=== PATIENT | female | born 1945 | race Caucasian/White ===

== ENCOUNTER → 2016-10-25 | Outpatient (CLI) | payer OTHER ==
[~2016-10-25] MED LIST: ACET500T57 PO; ASCO1CAP3 PO; ASPI81TA28 PO; ATOR10TA88 PO; CALC-354 PO; CETI10TA84 PO; DICL75TA2 PO; ETAN50IN3 SC; FERR18TA2 PO; FLUT0.15 NAE; FLV400 PO; FLVHFA44 INH; GUAISYP4 PO; IRBE-37 PO; METF500T5 PO; MULTCHW PO; ONGLYZA PO; OXYC-57 PO; PRLSR20 PO; SRVDIN60 INH; TRMO115 TOP; VERA180T PO; VERA1TAB PO; VITACAP26 PO; ZNTT/150 PO; [UNRECOGNIZED DRUG - CODE] PO
[2016-10-25 12:49] LABS: URINE APPEARANCE CLEAR (CLEAR); URINE BILIRUBIN NEG (NEG); URINE COLOR DK YELLOW; URINE EPITHELIAL CELL AUTO 20-30 /lpf (0-5); URINE NITRITE NEG (NEG); UROBILINOGEN NEG (NEG)
[2016-10-25 12:50] LABS: HEMATOCRIT 35.4 % (37-47); MEAN CELL VOLUME 85.1 fL (80-100); MEAN CORPUSCULAR HEMOGLOBIN 28.1 pg (25-34); MEAN CORPUSCULAR HGB CONC 33.1 g/dl (32-36); MEAN PLATELET VOLUME 10.5 fL (7.4-10.4); PLATELET COUNT 330 K/uL (130-400); RED BLOOD COUNT 4.16 M/uL (4.2-5.4); WHITE BLOOD COUNT 9.72 K/uL (4.8-10.8)
[2016-10-25 12:54] LABS: ALT/SGPT 44 U/L (12-78); AST/SGOT 29 U/L (15-37); BLOOD UREA NITROGEN 13 mg/dl (7-18); CALCIUM 9.8 mg/dl (8.5-10.1); CARBON DIOXIDE 26 mmol/L (21-32); CHLORIDE 102 mmol/L (98-107); CHOLESTEROL 100 mg/dl (0-200); CREATININE 0.68 mg/dl (0.60-1.20); GLUCOSE 115 mg/dl (70-99); POTASSIUM 4.2 mmol/L (3.5-5.1); SODIUM 138 mmol/L (136-145); TRIGLYCERIDES 82 mg/dl (0-150); VERY LOW DENSITY LIPOPROT CALC 16 mg/dl
[2016-10-25 12:58] LABS: MANUAL MICROSCOPIC REQUIRED? NO; REVIEW REQ? NO
[2016-10-25 13:06] LABS: ALKALINE PHOSPHATASE 98 U/L (45-117); CHOLESTEROL/HDL RATIO 2.7; HDL CHOLESTEROL 37 mg/dl; LDL CHOLESTEROL CALCULATED 47 mg/dl
[2016-10-25 13:18] LABS: ESTIMATED AVERAGE GLUCOSE 131 mg/dl; HA1C FLAG Normal (Normal)
[2016-10-25 14:07] LABS: RATIO 11.1 mcg/mg (0-30.0)
== END | disposition home or self-care (01) ==
LOC: C.LABBFT 09:37
PROVIDERS: ATTEND Internal Medicine
DX: L40.50 Arthropathic psoriasis, unspecified (principal); Z79.899 Other long term (current) drug therapy; E11.9 Type 2 diabetes mellitus without complications; I10 Essential (primary) hypertension; E78.2 Mixed hyperlipidemia

== ENCOUNTER 2016-11-01 15:54 | Emergency (ER) | payer OTHER ==
[~2016-11-01] VITALS: Ht 160 cm; Wt 60.5 kg
[2016-11-01 16:27] VITALS: TEMP 36.6; Ht 160 cm; Wt 60.5 kg
[2016-11-01] MEDS ORDERED: SODIUM CHLORIDE 0.9% 500ML 500 ML IV STA (17:10)
[2016-11-01] MEDS ORDERED: SODIUM CHLORIDE 0.9% 1000ML 1,000 ML IV STA (17:10)
--- NOTE | 2016-11-01 17:28 | DIAGNOSTIC IMAGING REPORT ---
CHEST ONE VIEW PORTABLE HISTORY: Epigastric abdominal pain. COMPARISON: None. FINDINGS: Low lung volumes. The lungs are clear. The heart is normal in size. No pleural effusions. No pneumothorax. IMPRESSION: No acute process. Electronically signed by: Carlos Barnes M.D. 11/01/2016 5:27 PM Dictated Date/Time: 11/01/2016 5:26 PM
[2016-11-01 17:43] VITALS: O2SAT 97
[2016-11-01 17:44] LABS: BASO % 0.4 %; BASO ABS # 0.03 K/uL (0-0.2); COMPLETE YES; EOS % 1.2 %; HEMATOCRIT 36.6 % (37-47); IG% 0.4 %; LYMPH % 21.5 %; LYMPH ABS # 1.62 K/uL (1.2-3.4); MEAN CELL VOLUME 81.9 fL (80-100); MEAN CORPUSCULAR HEMOGLOBIN 27.7 pg (25-34); MEAN CORPUSCULAR HGB CONC 33.9 g/dl (32-36); MEAN PLATELET VOLUME 9.7 fL (7.4-10.4); MONO % 19.8 %; NEUT % 56.7 %; PLATELET COUNT 415 K/uL (130-400); RED BLOOD COUNT 4.47 M/uL (4.2-5.4); WHITE BLOOD COUNT 7.53 K/uL (4.8-10.8)
[2016-11-01 18:02] LABS: BUN/CREATININE RATIO 22.9 (10-20); C-REACTIVE PROTEIN 15.7 mg/dl (0-0.29); CALCIUM 9.3 mg/dl (8.5-10.1); CREATININE 0.58 mg/dl (0.60-1.20); MAGNESIUM 1.6 mg/dl (1.8-2.4); POTASSIUM 4.3 mmol/L (3.5-5.1)
[2016-11-01 18:05] LABS: ALB/GLOB RATIO 0.7 (0.9-2)
[2016-11-01] MEDS ORDERED: OPTIRAY 320 IV PRN (18:15)
[2016-11-01] MEDS ORDERED: METF500T5 PO (18:27)
[2016-11-01] MEDS ORDERED: SRVDIN60 INH (18:27)
[2016-11-01] MEDS ORDERED: FLV400 PO (18:27)
[2016-11-01] MEDS ORDERED: ETAN50IN3 SC (18:27)
[2016-11-01] MEDS ORDERED: VITACAP26 PO (18:27)
[2016-11-01] MEDS ORDERED: ATOR10TA88 PO (18:27)
[2016-11-01] MEDS ORDERED: ZNTT/150 PO (18:27)
[2016-11-01] MEDS ORDERED: MULTCHW PO (18:27)
[2016-11-01] MEDS ORDERED: CETI10TA84 PO (18:27)
[2016-11-01] MEDS ORDERED: [UNRECOGNIZED DRUG - CODE] PO (18:27)
[2016-11-01] MEDS ORDERED: CALC-354 PO (18:27)
[2016-11-01] MEDS ORDERED: DICL75TA2 PO (18:27)
[2016-11-01] MEDS ORDERED: IRBE-37 PO (18:27)
[2016-11-01] MEDS ORDERED: ONGLYZA PO (18:27)
[2016-11-01] MEDS ORDERED: ASPI81TA28 PO (18:27)
[2016-11-01] MEDS ORDERED: ACET500T57 PO (18:27)
[2016-11-01] MEDS ORDERED: FLUT0.15 NAE (18:27)
[2016-11-01] MEDS ORDERED: VERA1TAB PO (18:27)
--- NOTE | 2016-11-01 19:14 | DIAGNOSTIC IMAGING REPORT ---
ABDOMINAL ULTRASOUND, RIGHT UPPER QUADRANT HISTORY: Right upper quadrant abdominal pain. COMPARISON: None. FINDINGS: No hepatic lesions are identified by sonography. There is no intrahepatic biliary ductal dilatation. There is borderline dilatation of the common bile duct which measures 7 mm in caliber. No common bile duct calculi are identified by sonography. Sludge within the gallbladder is noted. There were a few nonmobile echogenic structures without shadowing within the gallbladder that measure up to 6 mm. These could reflect polyps or stones. Mild gallbladder wall thickening was noted. No sonographic Ramirez sign was elicited. The pancreas is obscured by overlying bowel gas. IMPRESSION: 1. A few nonmobile nonshadowing structures within the gallbladder which measure up to 6 mm. These could reflect polyps or nonshadowing stones. Mild irregular gallbladder wall thickening. No sonographic Ramirez sign. No convincing evidence for acute cholecystitis although a hepatobiliary scan could be obtained as indicated. A follow-up ultrasound in 6 months is recommended to ensure stability of the suspected polyps. 2. Borderline dilatation of the common bile duct. 3. Obscured pancreas. Electronically signed by: Isai Lemus M.D. 11/01/2016 7:13 PM Dictated Date/Time: 11/01/2016 7:09 PM
[2016-11-01 20:02] LABS: URINE APPEARANCE CLEAR (CLEAR); URINE BILIRUBIN NEG (NEG); URINE COLOR DK YELLOW; URINE EPITHELIAL CELL AUTO 20-30 /lpf (0-5); URINE NITRITE NEG (NEG); URINE PH 5.5 (4.5-7.5); URINE SPECIFIC GRAVITY 1.021 (1.000-1.030); UROBILINOGEN NEG (NEG); ZZUR CULT IF INDIC CLEAN CATCH YES
[2016-11-01 20:09] LABS: MANUAL MICROSCOPIC REQUIRED? NO; REVIEW REQ? NO
[2016-11-01 20:26] LABS: BENZODIAZEPINE, URINE NEG (NEG); COCAINE,URINE NEG (NEG); PHENCYCLIDINE, URINE NEG (NEG)
--- NOTE | 2016-11-01 20:41 | DIAGNOSTIC IMAGING REPORT ---
CT OF THE ABDOMEN AND PELVIS WITH CONTRAST CLINICAL HISTORY: Abdominal pain. COMPARISON STUDY: Right upper quadrant ultrasound November 01, 2016. TECHNIQUE: Following IV administration of 115 mL of Optiray-320, axial images of the abdomen and pelvis were obtained from the lung bases to the proximal femurs. Images were reviewed in the axial, sagittal, and coronal planes. IV contrast was administered without complication. Oral contrast was administered. CT DOSE: 303.71 mGy.cm FINDINGS: Lung bases are clear. There is extensive coronary artery calcification. The liver, spleen, adrenal glands and kidneys are unremarkable. There is slight prominence of the right renal pelvis without laina hydronephrosis. There is mild gallbladder wall thickening. No biliary or pancreatic ductal dilatation is present. There is no evidence for a bowel obstruction. Note is made of sigmoid diverticulosis without evidence for acute diverticulitis. There is mild wall thickening of the proximal sigmoid colon. There is no lymphadenopathy. There is extensive atherosclerotic calcification of the abdominal aorta. No pneumatosis, free air or portal venous gas is present. IMPRESSION: 1. No definite acute process within the abdomen or pelvis. 2. Mild gallbladder wall thickening which could be correlated with right upper quadrant pain. 3. Sigmoid diverticulosis without convincing evidence for acute diverticulitis. Several moderate to large diverticula. Mild colonic wall thickening is probably chronic. Consideration might be given to further evaluation with nonemergent colonoscopy to exclude the unlikely possibility of a mucosal lesion. 4. Extensive coronary artery calcification. Electronically signed by: Isai Lemus M.D. 11/01/2016 8:40 PM Dictated Date/Time: 11/01/2016 8:30 PM
[2016-11-01] MEDS ORDERED: LOPERAMIDE HCL 2 MG CAP PO ONE (22:15)
--- NOTE | 2016-11-01 22:49 | EMERGENCY ROOM VISIT NOTE ---
ED Visit Note First contact with patient: 16:56 I saw this patient in conjunction with Jay Izquierdo PA-C. I agree with his decision-making and treatment plan.
--- NOTE | 2016-11-01 23:02 | EMERGENCY ROOM VISIT NOTE ---
History First contact with patient: 16:56 Chief Complaint: ABDOMINAL PAIN Stated Complaint: ABD. PAIN-DR. ALMENDAREZ SENT FOR CT SCAN History of Present Illness The patient is a 71 year old female who presents to the Emergency Department for evaluation of her upper abdominal pain, and diarrhea. She reports that she' s had diarrhea for the past 4 weeks. She had stool cultures performed by her primary care provider which were found to be unremarkable. She reports that over the past 4-6 days she has had stomach pain as well as pain in the RIGHT upper quadrant. She is been nauseated and has vomited. She reports that the only thing that has seemed to help her symptoms has been milk. She had an appointment with her primary care provider today who was concerned that she may be dehydrated and needed a CAT scan so she directed her to the emergency Department for further evaluation and management. The patient rates her current discomfort as a 4/10. She denies any fevers, chills, headaches, dizziness, chest pain, palpitations, short of breath, hematemesis, hematochezia , melena, hematuria, or dysuria. She reports a history of appendectomy at the age of 15. Review of Systems A complete 10-point Review of Systems was discussed with the patient, with pertinent positives and negatives listed in the History of Present Illness. All remaining Review of Systems questions can be considered negative unless otherwise specified. Social History Smoking Status: Never Smoker Smokeless Tobacco Use: No Drug Use: none Occupation Status: retired Current/Historical Medications Scheduled Acetaminophen (Acetaminophen), 500 MG PO Q6 Aspirin (Aspirin Ec), 81 MG PO DAILY Atorvastatin (Lipitor), 10 MG PO DAILY Calcium Carbonate-Cholecalcife (Caltrate 600+D), 1 TAB PO DAILY Cetirizine (Zyrtec), 10 MG PO DAILY Diclofenac Sodium (Voltaren), 75 MG PO BID Etanercept (Enbrel Sureclick), 50 MG SC 2XWK Fluticasone Propionate (Nasal) (Flonase Allergy Relief), 2 SPRAY AD BID Folic Acid (Folic Acid), 400 MCG PO DAILY Irbesartan (Avapro), 150 MG PO DAILY Metformin Hcl Er (Glucophage Er), 500 MG PO BID Multiple Vitamins W/ Minerals (Centrum Silver), 1 TAB PO DAILY Ranitidine (Zantac), 150 MG PO BID Salmeterol Xinafoate (Serevent Diskus), 1 PUFF INH BID Theophylline (Theophylline Cr), 200 MG PO DAILY Verapamil (Calan), 180 MG PO DAILY Vitamins C & E (Vitamin C), 500 MG PO DAILY [Onglyza], 5 MG PO DAILY Allergies Coded Allergies: Pravastatin (Unverified Adverse Reaction, Intermediate, LEG PAIN, 11/01/16) Physical Exam Vital Signs Date Time Temp Pulse Resp B/P Pulse Ox O2 Delivery O2 Flow Rate FiO2 11/01/16 23:25 113 20 129/89 99 11/01/16 22:28 102 18 120/71 97 Room Air 11/01/16 20:25 102 18 118/69 97 Room Air 11/01/16 18:21 108 11/01/16 18:16 107 18 120/71 97 Room Air 11/01/16 17:43 97 Room Air 11/01/16 16:27 36.6 124 18 130/65 97 Room Air Pain Rating (0-10): 4 Physical Exam VITAL SIGNS - Vital signs and nursing notes were reviewed. GENERAL - 71-year-old female appearing her stated age who is in no acute distress. Communicates well with provider and answers questions appropriately. HEAD - NC/AT. EYES - PERRL with EOMI bilaterally. Sclera anicteric. Palpebral conjunctiva pink and moist with no injection noted. EARS - No deformities of external structures noted on gross examination bilaterally. No pain elicited with palpation of the tragus bilaterally. External auditory canals without discharge or otorrhea. Tympanic membranes pearly dillon without retraction or bulging. NOSE - Midline and without cyanosis. No epistaxis or purulent drainage noted. Septum midline without deviation or septal hematoma noted. MOUTH/OROPHARYNX - Without perioral cyanosis. Buccal mucosa pink and moist and without leukoplakia. Tongue midline with equal elevation of palate bilaterally. No tonsillar hypertrophy, erythema, or exudates noted. NECK - Neck with FROM. Supple to palpation. No nuchal rigidity. LUNGS - Chest wall symmetric without accessory muscle use, intercostals retractions, or central cyanosis. Normal vesicular breath sounds CTA B/L. No wheezes, rales, or rhonchi appreciated. CARDIAC - RRR with S1/S2. No murmur, rubs, or gallops appreciated. ABDOMEN - Abdominal contour flat and without pulsations or visible masses. BS normoactive all four quadrants. Mild tenderness to palpation appreciated in the RIGHT Upper quadrant. No guarding. No Rebound Tenderness. Negative Rovsing's. Negative Ramirez's. No palpable masses, hepatosplenomegaly, or ascites noted. EXTREMITIES - No clubbing or peripheral cyanosis. No pretibial edema present. +3 /5 radial and dorsalis pedis pulses palpated throughout. PSYCH - A&Ox3 and cooperates fully with examiner. Pt is very pleasant and interacts well with examiner. Medical Decision & Procedures ER Provider Diagnostic Interpretation: Radiological imaging and reports were reviewed by myself. Radiologist's Interpretation as follows: ABDOMINAL ULTRASOUND, RIGHT UPPER QUADRANT HISTORY: Right upper quadrant abdominal pain. COMPARISON: None. FINDINGS: No hepatic lesions are identified by sonography. There is no intrahepatic biliary ductal dilatation. There is borderline dilatation of the common bile duct which measures 7 mm in caliber. No common bile duct calculi are identified by sonography. Sludge within the gallbladder is noted. There were a few nonmobile echogenic structures without shadowing within the gallbladder that measure up to 6 mm. These could reflect polyps or stones. Mild gallbladder wall thickening was noted. No sonographic Ramirez sign was elicited. The pancreas is obscured by overlying bowel gas. IMPRESSION: 1. A few nonmobile nonshadowing structures within the gallbladder which measure up to 6 mm. These could reflect polyps or nonshadowing stones. Mild irregular gallbladder wall thickening. No sonographic Ramirez sign. No convincing evidence for acute cholecystitis although a hepatobiliary scan could be obtained as indicated. A follow-up ultrasound in 6 months is recommended to ensure stability of the suspected polyps. 2. Borderline dilatation of the common bile duct. 3. Obscured pancreas. CHEST ONE VIEW PORTABLE HISTORY: Epigastric abdominal pain. COMPARISON: None. FINDINGS: Low lung volumes. The lungs are clear. The heart is normal in size. No pleural effusions. No pneumothorax. IMPRESSION: No acute process. CT OF THE ABDOMEN AND PELVIS WITH CONTRAST CLINICAL HISTORY: Abdominal pain. COMPARISON STUDY: Right upper quadrant ultrasound November 01, 2016. TECHNIQUE: Following IV administration of 115 mL of Optiray-320, axial images of the abdomen and pelvis were obtained from the lung bases to the proximal femurs. Images were reviewed in the axial, sagittal, and coronal planes. IV contrast was administered without complication. Oral contrast was administered. CT DOSE: 303.71 mGy.cm FINDINGS: Lung bases are clear. There is extensive coronary artery calcification. The liver, spleen, adrenal glands and kidneys are unremarkable. There is slight prominence of the right renal pelvis without laina hydronephrosis. There is mild gallbladder wall thickening. No biliary or pancreatic ductal dilatation is present. There is no evidence for a bowel obstruction. Note is made of sigmoid diverticulosis without evidence for acute diverticulitis. There is mild wall thickening of the proximal sigmoid colon. There is no lymphadenopathy. There is extensive atherosclerotic calcification of the abdominal aorta. No pneumatosis, free air or portal venous gas is present. IMPRESSION: 1. No definite acute process within the abdomen or pelvis. 2. Mild gallbladder wall thickening which could be correlated with right upper quadrant pain. 3. Sigmoid diverticulosis without convincing evidence for acute diverticulitis. Several moderate to large diverticula. Mild colonic wall thickening is probably chronic. Consideration might be given to further evaluation with nonemergent colonoscopy to exclude the unlikely possibility of a mucosal lesion. 4. Extensive coronary artery calcification. Laboratory Results 11/01/16 17:30 Red Blood Count 4.47, Mean Corpuscular Volume 81.9, Mean Corpuscular Hemoglobin 27.7, Mean Corpuscular Hemoglobin Concent 33.9, Mean Platelet Volume 9.7, Neutrophils (%) (Auto) 56.7, Lymphocytes (%) (Auto) 21.5, Monocytes (%) (Auto) 19.8, Eosinophils (%) (Auto) 1.2, Basophils (%) (Auto) 0.4, Neutrophils # (Auto ) 4.27, Lymphocytes # (Auto) 1.62, Monocytes # (Auto) 1.49, Eosinophils # (Auto ) 0.09, Basophils # (Auto) 0.03 11/01/16 17:30 Test 11/01/16 00:00 11/01/16 15:55 11/01/16 17:30 11/01/16 17:34 Urine Color DK YELLOW Urine Appearance CLEAR (CLEAR) Urine pH 5.5 (4.5-7.5) Urine Specific [place] 1.021 (1.000-1.030) Urine Protein NEG (NEG) Urine Glucose (UA) NEG (NEG) Urine Ketones 3+ (NEG) Urine Occult Blood NEG (NEG) Urine Nitrite NEG (NEG) Urine Bilirubin NEG (NEG) Urine Urobilinogen NEG (NEG) Urine Leukocyte Esterase TRACE (NEG) Urine WBC (Auto) 1-5 /hpf (0-5) Urine RBC (Auto) 5-10 /hpf (0-4) Urine Hyaline Casts (Auto) 5-10 /lpf (0-5) Urine Epithelial Cells (Auto) 20-30 /lpf (0-5) Urine Bacteria (Auto) 1+ (NEG) Urine Opiates Screen NEG (NEG) Urine Methadone, Qualitative NEG (NEG) Urine Barbiturates NEG (NEG) Urine Phencyclidine (PCP) Level NEG (NEG) Ur Amphetamine/Methamphetamine NEG (NEG) MDMA (Ecstasy) Screen NEG (NEG) Urine Benzodiazepines Screen NEG (NEG) Urine Cocaine Metabolite NEG (NEG) Urine Marijuana (THC) NEG (NEG) Lab Scanned Report Laboratory Report/Additional White Blood Count 7.53 K/uL (4.8-10.8) Red Blood Count 4.47 M/uL (4.2-5.4) Hemoglobin 12.4 g/dL (12.0-16.0) Hematocrit 36.6 % (37-47) Mean Corpuscular Volume 81.9 fL (80-100) Mean Corpuscular Hemoglobin 27.7 pg (25-34) Mean Corpuscular Hemoglobin Concent 33.9 g/dl (32-36) Platelet Count 415 K/uL (130-400) Mean Platelet Volume 9.7 fL (7.4-10.4) Neutrophils (%) (Auto) 56.7 % Lymphocytes (%) (Auto) 21.5 % Monocytes (%) (Auto) 19.8 % Eosinophils (%) (Auto) 1.2 % Basophils (%) (Auto) 0.4 % Neutrophils # (Auto) 4.27 K/uL (1.4-6.5) Lymphocytes # (Auto) 1.62 K/uL (1.2-3.4) Monocytes # (Auto) 1.49 K/uL (0.11-0.59) Eosinophils # (Auto) 0.09 K/uL (0-0.5) Basophils # (Auto) 0.03 K/uL (0-0.2) RDW Standard Deviation 45.6 fL (36.4-46.3) RDW Coefficient of Variation 15.2 % (11.5-14.5) Immature Granulocyte % (Auto) 0.4 % Immature Granulocyte # (Auto) 0.03 K/uL (0.00-0.02) Anion Gap 9.0 mmol/L (3-11) Est Creatinine Clear Calc Drug Dose 75.7 ml/min Estimated GFR () 109.0 Estimated GFR (Non- 94.0 BUN/Creatinine Ratio 22.9 (10-20) Calcium Level 9.3 mg/dl (8.5-10.1) Magnesium Level 1.6 mg/dl (1.8-2.4) Total Bilirubin 0.4 mg/dl (0.2-1) Aspartate Amino Transf (AST/SGOT) 17 U/L (15-37) Alanine Aminotransferase (ALT/SGPT) 33 U/L (12-78) Alkaline Phosphatase 115 U/L (45-117) Total Creatine Kinase 24 U/L (26-192) Creatine Kinase MB 1.2 ng/ml (0.5-3.6) Creatine Kinase MB Ratio 5.0 (0-3.0) C-Reactive Protein 15.70 mg/dl (0-0.29) Total Protein 7.1 gm/dl (6.4-8.2) Albumin 2.8 gm/dl (3.4-5.0) Globulin 4.3 gm/dl (2.5-4.0) Albumin/Globulin Ratio 0.7 (0.9-2) Lipase 58 U/L (73-393) Bedside Troponin I 0.000 ng/ml (0-0.045) Date/Time Source Procedure Growth Status 11/01/16 21:30 Stool C.difficile Toxin B Gene (PCR) - Final No C. difficile toxin B gene detected Complete 11/01/16 00:00 Urine , Clean Catch Urine Culture - Final Escherichia Coli Complete Medications Administered Medications (Trade) Dose Ordered Sig/Elinor Route Start Time Stop Time Status Last Admin Dose Admin Sodium Chloride 500 ml @ 999 mls/hr Q31M STAT IV 11/01/16 17:10 11/01/16 17:40 DC 11/01/16 17:44 999 MLS/HR Sodium Chloride (Nss 1000ml) 1,000 ml @ 125 mls/hr Q8H STAT IV 11/01/16 17:10 11/02/16 01:08 DC 11/01/16 17:44 125 MLS/HR Loperamide HCl (Imodium Cap) 4 mg NOW ONCE PO 11/01/16 22:15 11/01/16 22:16 DC 11/01/16 22:26 4 MG Procedure Patient was placed on the range operator and monitored throughout the entire extent of their stay. In addition, the patient's pulse oximetry was monitored throughout the entire stay. Any abnormalities or aberrancies were addressed appropriately. ECG Indication: abdominal pain Rate (beats per minute): 111 Rhythm: sinus tachycardia Findings: PAC, no acute ischemic change, no ectopy Comparison ECG Date: no prior available ED Course Patient was seen and evaluated by myself. Labs were drawn, saline lock in place. The patient was hydrated with a 500 mL normal saline bolus. She declined anything for pain or nausea while in the emergency department. Laboratory results demonstrate no acute leukocytosis, worrisome anemia, or bandemia. The patient has no significant electrolyte abnormalities. Cardiac enzymes are negative. Liver enzymes do not suggest acute hepatitis. Imaging results above. Laboratory results and imaging studies were reviewed with the patient who acknowledges understanding. The patient was now having diarrhea after by mouth contrast. Patient is requesting Imodium. She did have negative stool cultures easily. She is provided one dose in the emergency setting. I did discuss the case with Dr. Morse of general surgery. He does not feel any intervention is necessary at this point. They will follow-up with the patient the outpatient setting. Patient was encouraged to follow-up with general surgery as well as her primary care provider from today's visit. She was educated on worrisome symptoms for return visit to the emergency department. Patient discharged home afebrile and in good condition. Medical Decision Given the patient's presentation and exam findings, I did elect to perform the above-mentioned workup. She presents today with pain in the RIGHT upper quadrant with occasional diarrhea as well as some nausea and vomiting. She has no fever. She has no leukocytosis. Her cardiac evaluations unremarkable. Imaging studies demonstrate gallstones. This really could be the patient's ongoing symptoms. She does not have exam findings or imaging studies consistent with acute cholecystitis at this point. Regardless, the patient was encouraged to follow-up with general surgery from today's visit and for possible definitive management. She was educated on worrisome symptoms for return visit to the emergency department. Patient discharged home afebrile and in good condition. In the evaluation and treatment of this patient, the following differential diagnoses were considered: Appendicitis, Diverticulitis, Diverticulosis, Colitis , Ischemic Colitis, Inflammatory Bowel Disease, Irritable Bowel Disease, Kidney Stone, Pyelonephritis, Hydronephrosis, Cholecystitis, Ascending Cholangitis, Choledocholithiasis, GERD. Impression Primary Impression: Right upper quadrant abdominal pain Departure Information Dispostion Home / Self-Care Condition GOOD Referrals Israel Almendarez M.D. (PCP) Addi Morse M.D. Patient Instructions My [facility] Additional Instructions You have been treated in the Emergency Department for your Abdominal Pain. You should eat a bland diet for the next few days. Some suggested bland dietary foods: Bananas, Rice, Applesauce, Citrus, or Boiled Chicken. These foods are easy to digest and help you to recover at a faster rate. All meals for the next few days should be small to glass cutter helper in bowel rest. For pain control, you can use the following [id number] medicines (if >12 yo): - Regular strength (325mg/tab) Tylenol (acetaminophen) 2 tabs every 4-6 hours as needed. Do not exceed 12 tablets in a 24 hour period. Avoid taking more than 4 grams (4000 mg) of Tylenol per day. This includes any other sources of acetaminophen you may take on a regular basis. - Regular strength (200 mg/tab) Advil (ibuprofen) 1-2 tabs every 4-6 hours as needed. Do not exceed a dose of 3200 mg per day. Please follow-up with your primary care provider or general surgeon later this week as discussed. Return to the Emergency Department if your current symptoms worsen despite treatment course outlined above, or if you develop any of the following symptoms : worsening abdominal pain, associated chest or back pain, worsening nausea/ vomiting, dizziness, shortness of breath, blood in your vomit, or fainting.
[2016-11-01 23:25] VITALS: BP 129/89; PULSE 113; O2SAT 99
--- NOTE | 2016-11-03 16:20 | Pharmacy Progress Note ---
ED Pharmacist Culture FollowUp Date of Service: Nov 03, 2016. Called patient regarding urine culture. Prescription for Keflex 500 mg po BID x5 days called to [facility] at the patient's request. Case discussed with Jay Izquierdo PA-C, who is the prescribing provider.
[2016-11-25] MEDS ORDERED: FLVHFA44 INH (11:32)
[2016-11-25] MEDS ORDERED: TRMO115 TOP (11:32)
[2016-11-25] MEDS ORDERED: PRLSR20 PO (11:32)
[2016-11-25] MEDS ORDERED: FERR18TA2 PO (11:35)
[2016-11-25] MEDS ORDERED: ASCO1CAP3 PO (11:35)
[2016-11-25] MEDS ORDERED: GUAISYP4 PO (11:35)
[2017-01-10] MEDS ORDERED: VERA180T PO (10:46)
== END 2016-11-01 23:25 | disposition home or self-care (01) ==
LOC: C.EDB 15:55 → C.EDC 23:25
DX: R10.11 Right upper quadrant pain (principal); Z79.82 Long term (current) use of aspirin; Z79.899 Other long term (current) drug therapy

== ENCOUNTER 2016-12-01 09:44 | Observation (INO) | payer OTHER ==
[2016-11-25 11:36] VITALS: BMI 22.0
--- NOTE | 2016-11-25 12:17 | PAT Medication Instructions ---
Service Date Nov 25, 2016. Current Home Medication List Acetaminophen (Acetaminophen), 1,000 MG PO PRN Ascorbic Acid (Vitamin C), 500 MG PO QAM Aspirin (Aspirin Ec), 81 MG PO QAM Atorvastatin (Lipitor), 10 MG PO HS Calcium Carbonate-Cholecalcife (Caltrate 600+D), 1 TAB PO BID Cetirizine (Zyrtec), 10 MG PO QAM Diclofenac Sodium (Voltaren), 75 MG PO BID Etanercept (Enbrel Sureclick), 50 MG SC 2XWK Ferrous Fumarate (Iron), 18 MG PO QAM Fluticasone Propionate (Flovent Hfa), 1 PUFFS INH BID PRN for PRN Fluticasone Propionate (Nasal) (Flonase Allergy Relief), 2 SPRAY AD BID PRN for PRN Folic Acid (Folic Acid), 400 MCG PO QAM Guaifenesin/Codeine (Robitussin-Ac Syrup), 5 ML PO Q6H PRN for N Irbesartan (Avapro), 150 MG PO QAM Metformin Hcl Er (Glucophage Er), 500 MG PO BID Multiple Vitamins W/ Minerals (Centrum Silver), 1 TAB PO QAM Omeprazole (Prilosec), 20 MG PO BID Ranitidine (Zantac), 150 MG PO BID Salmeterol Xinafoate (Serevent Diskus), 1 PUFF INH BID PRN for WHEEZING Theophylline (Theophylline Cr), 200 MG PO QAM Triamcinolone Acet (Triamcinolone Acetonide), 1 APPLN TOP BID Verapamil (Calan), 180 MG PO QAM [Onglyza], 5 MG PO QAM Medication Instructions For Your Scheduled Surgery Etanercept (Enbrel Sureclick), 50 MG SC 2XWK (per surgeon/prescribing physician for instructions) Aspirin (Aspirin Ec), 81 MG PO QAM (check with surgeon/family doctor for instructions) Diclofenac Sodium (Voltaren), 75 MG PO BID (check with surgeon for instructions) - Hold the following medications 24 hours prior to surgery: Triamcinolone Acet (Triamcinolone Acetonide), 1 APPLN TOP BID - Hold the following medications 48 hours prior to surgery: Metformin Hcl Er (Glucophage Er), 500 MG PO BID - Hold the following medications the morning of surgery: Ranitidine (Zantac), 150 MG PO BID Multiple Vitamins W/ Minerals (Centrum Silver), 1 TAB PO QAM Irbesartan (Avapro), 150 MG PO QAM Guaifenesin/Codeine (Robitussin-Ac Syrup), 5 ML PO Q6H PRN for N Folic Acid (Folic Acid), 400 MCG PO QAM Ferrous Fumarate (Iron), 18 MG PO QAM Cetirizine (Zyrtec), 10 MG PO QAM Calcium Carbonate-Cholecalcife (Caltrate 600+D), 1 TAB PO BID Ascorbic Acid (Vitamin C), 500 MG PO QAM [Onglyza], 5 MG PO QAM - Take the following medications the morning of surgery with a sip of water: Verapamil (Calan), 180 MG PO QAM Salmeterol Xinafoate (Serevent Diskus), 1 PUFF INH BID PRN for WHEEZING Omeprazole (Prilosec), 20 MG PO BID Fluticasone Propionate (Flovent Hfa), 1 PUFFS INH BID PRN for PRN Fluticasone Propionate (Nasal) (Flonase Allergy Relief), 2 SPRAY AD BID PRN for PRN Acetaminophen (Acetaminophen), 1,000 MG PO PRN Theophylline (Theophylline Cr), 200 MG PO QAM - Take the following medications as scheduled the night before surgery: Salmeterol Xinafoate (Serevent Diskus), 1 PUFF INH BID PRN for WHEEZING Ranitidine (Zantac), 150 MG PO BID Omeprazole (Prilosec), 20 MG PO BID Guaifenesin/Codeine (Robitussin-Ac Syrup), 5 ML PO Q6H PRN for N Fluticasone Propionate (Flovent Hfa), 1 PUFFS INH BID PRN for PRN Fluticasone Propionate (Nasal) (Flonase Allergy Relief), 2 SPRAY AD BID PRN for PRN Calcium Carbonate-Cholecalcife (Caltrate 600+D), 1 TAB PO BID Atorvastatin (Lipitor), 10 MG PO HS Acetaminophen (Acetaminophen), 1,000 MG PO PRN Theophylline (Theophylline Cr), 200 MG PO QAM If you have any questions please call us at [phone] (Nicole Mckenzie PA-C) or [phone] or [phone]
[2016-12-01] VITALS (7 sets, daily range): BP systolic 108–139; BP diastolic 66–72; PULSE 86–102; TEMP 36.8–37; O2SAT 93–98; Ht 160 cm; Wt 58.4 kg
[~2016-12-01] VITALS: Ht 160 cm; Wt 58.4 kg
[~2016-12-01 09:44] MED LIST changes: +ATOR10TA82 PO; -ATOR10TA88 PO; +CEFAZOLIN 2000 MG/60 ML D5W IV SCH; +LACTATED RINGER'S 1000ML 1,000 ML IV SCH; -OXYC-57 PO; -VERA180T PO; -VITACAP26 PO
[2016-12-01] MEDS ORDERED: EpHEDrine SULFATE INJ 50 MG/ML AMP ONE (10:59)
[2016-12-01] MEDS ORDERED: DEXAMETHASONE SOD INJ 4 MG/ML VIAL ONE (10:59)
[2016-12-01] MEDS ORDERED: ONDANSETRON INJ 2 MG/ML 2 ML VIAL ONE ×2 (10:59→14:19)
[2016-12-01] MEDS ORDERED: NEOSTIGMINE METHYLSULFATE 5 MG/5 ML SYR ONE (10:59)
[2016-12-01] MEDS ORDERED: PHENYLEPHRINE HCL INJ 10 MG/ML VIAL ONE (10:59)
[2016-12-01] MEDS ORDERED: SUCCINYLCHOLINE CHLORIDE 20 MG/ML 10 ML VIAL IV ONE (10:59)
[2016-12-01] MEDS ORDERED: ROCURONIUM BROMIDE 10 MG/ML 5 ML VIAL ONE (10:59)
[2016-12-01] MEDS ORDERED: GLYCOPYRROLATE INJ 0.2 MG/ML VIAL ONE (10:59)
[2016-12-01] MEDS ORDERED: LIDOCAINE HCL 2% 2 ML VIAL (20MG/ML) ONE (10:59)
[2016-12-01] MEDS ORDERED: PROPOFOL IV EMULSION 10 MG/ML 20 ML VIAL IV ONE (10:59)
[2016-12-01] MEDS ORDERED: MIDAZOLAM HCL 1 MG/ML 2ML VIAL ONE (11:00)
[2016-12-01] MEDS ORDERED: FENTANYL CITRATE INJ 50 MCG/1 ML 2 ML VIAL ONE ×3 (11:00→13:56)
--- NOTE | 2016-12-01 11:33 | History & Physical Bridge Note ---
H&P Re-Evaluation Bridge Note: I have examined the patient, reviewed the History & Physical and in the interval since the performance of the History & Physical I have noted the following changes of clinical significance: No changes noted
[2016-12-01] MEDS ORDERED: ONDANSETRON INJ 2 MG/ML 2 ML VIAL IV PRN (11:45)
[2016-12-01] MEDS ORDERED: CONRAY 60% 50 ML VIAL ONE (11:45)
[2016-12-01] MEDS ORDERED: CEFAZOLIN SOD 1 GM VIAL ONE (11:45)
[2016-12-01] MEDS ORDERED: HEPARIN SOD (PORCINE) 1000 UNIT/ML 10 ML VIAL ONE (11:45)
[2016-12-01] MEDS ORDERED: EpHEDrine SULFATE INJ 50 MG/ML AMP IV PRN (11:45)
[2016-12-01] MEDS ORDERED: BUPIVACAINE 0.5 % 5 MG/1 ML MPF 30ML VIAL ONE (11:45)
[2016-12-01] MEDS ORDERED: ATROPINE SULFATE 0.1 MG/ML 5ML SYR IV PRN (11:45)
[2016-12-01] MEDS ORDERED: FLOSEAL HEMOSTATIC MATRIX 10ML TOP ONE (13:25)
--- NOTE | 2016-12-01 14:07 | [facility] Post Operative Brief Note ---
Immediate Operative Summary Operative Date Dec 01, 2016. Pre-Operative Diagnosis Gallbladder Polyp Post-Operative Diagnosis Gallbladder Polyp Procedure(s) Performed Laparoscopic Cholecystectomy Surgeon Dr. Honorio Bill Coke Handling Supervisor Surgeon(s) None Estimated Blood Loss 25 ML Findings See dictation Specimens Permanent Specimen A: Gallbladder and contents Drains One J-P in the subhepatic space Complication(s) None Disposition Recovery Room / PACU
[2016-12-01] MEDS ORDERED: FLUTICASONE PROP HFA INH 44 MCG INHALER INH PRN (14:15)
[2016-12-01] MEDS ORDERED: SALMETEROL XINAFOATE 50MCG 28 BLISTER INH INH PRN (14:15)
[2016-12-01] MEDS ORDERED: FLUTICASONE PROPIONATE NA SPR 16 GM BTL NAE PRN (14:15)
[2016-12-01] MEDS: FENTANYL CITRATE INJ 50 MCG/1 ML 2 ML VIAL IV PRN ×4 (14:25→15:00)
--- NOTE | 2016-12-01 14:43 | Anesthesiology Progress Note ---
Anesthesia Post Op Note Date & Time Dec 01, 2016 at 14:43 Vital Signs Pain Intensity: 4 Vital Signs Past 12 Hours Date Time Temp Pulse Resp B/P Pulse Ox O2 Delivery O2 Flow Rate FiO2 12/01/16 14:30 86 14 130/62 100 Nasal Cannula 2 12/01/16 14:20 86 16 127/74 100 Mask 10 12/01/16 14:10 84 16 100/56 100 Mask 10 12/01/16 14:03 36.8 83 16 146/74 100 Mask 10 12/01/16 10:20 37 102 18 139/66 97 Room Air Notes Mental Status: alert / awake / arousable, participated in evaluation Pt Amnestic to Procedure: Yes Nausea / Vomiting: adequately controlled Pain: adequately controlled Airway Patency, RR, SpO2: stable & adequate BP & HR: stable & adequate Hydration State: stable & adequate Anesthetic Complications: no major complications apparent Pt doing well.
[2016-12-01] MEDS ORDERED: IV FLUIDS COMPLETED PRN (15:45)
[2016-12-01] MEDS: MoRPHine SULFATE 4 MG/ML 1 ML CARP\\VIAL IV PRN ×4 (16:14→23:40)
--- NOTE | 2016-12-01 16:38 | OPERATIVE REPORT ---
DATE OF OPERATION: 12/01/2016 PREOPERATIVE DIAGNOSIS: Gallbladder polyps. POSTOPERATIVE DIAGNOSES: Gallbladder polyps with severe chronic cholecystitis. PROCEDURE: Laparoscopic cholecystectomy. SURGEON: Dr. Bill. FINDINGS: The very fundus of the gallbladder was caked in omental adhesions. In the lower body and infundibulum, the duodenum was adhered as well. Those adhesions were more flimsy. The gallbladder wall was quite thickened. It was densely adherent to the liver and there was not a good plane of dissection between the gallbladder wall and the liver. The cystic duct was not dilated. The liver appeared to be of normal size and contour, although the left lobe was somewhat generous. The visible bowel appeared normal. TECHNIQUE: The patient was given a general anesthetic and the area was prepped and draped in the usual sterile fashion. Transverse incision was made below the umbilicus, carried down through the subcutaneous tissue to the fascia which was grasped with 2 Cari clamps and incised between. The peritoneum was identified, incised, and the introducer was placed bluntly. The abdomen was then insufflated to a pressure of 15 mmHg with carbon dioxide. The upper midline, midclavicular and anterior axillary introducers were placed under direct vision through small skin incisions. The patient was positioned in a reverse Trendelenburg airplane left. The fundus was able to be grasped and I then worked from the fundus down over the body towards the infundibulum, dividing and quite thick adhesions of the omentum. In dissecting them down to the body, the adhesions of the duodenum to the gallbladder were also then encountered. These were taken down using purely blunt dissection staying right on the gallbladder. Those were eventually more thin and it allowed me though to then visualize the lateral aspect of the infundibulum. There were some additional omental adhesions to the medial attachment of the wall of the gallbladder to the liver and those had to be taken down to better visualize the infundibulum. Once that was accomplished, the thickened peritoneum over that area was able to be opened and using blunt and hydrodissection I was able to separate the gallbladder wall away from the liver there and divide the thickened peritoneal attachments up along the lateral wall. I then was able to visualize the cystic duct lymph node and was able to establish a plane on the lateral side of the cystic duct lymph node which exposed the cystic duct itself. Further thickened tissue on the lateral side of that was bluntly dissected, and I was able to elevate the infundibulum and establish a plane behind the cystic duct and that then allowed me to confirm the site of the cystic duct gallbladder junction. Three clips were placed on the proximal cystic duct, one near the junction with the gallbladder and was divided. That allowed me then to further dissect behind the cystic duct lymph node and isolate the cystic artery. Two clips were placed proximally, one near the gallbladder and was divided. The cystic duct lymph node was included with the specimen. The gallbladder was then dissected away from the liver. This was a difficult dissection. It was densely adherent and I started on the lateral side and worked up the lateral side, dividing the peritoneum and then tried to work medially. The gallbladder wall posteriorly was somewhat friable. At one point I entered the gallbladder and decided then to work from the medial side, divided those attachments and those peritoneal attachments opening that and exposing the gallbladder wall and then was able to establish a plane between the gallbladder wall and the liver on that side and worked up over the fundus and then worked down towards the infundibulum. I was able to separate it. It did appear as though I left approximately 1.5 x 2 cm area of the posterior wall of the gallbladder. I placed the gallbladder into an Endobag and brought it through the upper midline incision where I had to dilate the peritoneum, fascia and they had to increase the size of the skin opening in order to extract it but that was able to be accomplished. I then went back and in a piecemeal fashion was able to remove the vast majority of the remainder of the posterior wall. Anything that appeared to remain was cauterized. The gallbladder bed of the liver was inspected. There were areas of oozing that were controlled with cautery. The subdiaphragmatic and subhepatic spaces were irrigated, the irrigation was removed and the gallbladder bed of the liver was again inspected and there was no bleeding. The subdiaphragmatic and subhepatic spaces were irrigated again and that irrigation removed and that was repeated until the return was clear. The gallbladder bed of the liver was again inspected and there was no bleeding. The previously placed clips were inspected and were intact. A 10 mm flat MALCOLM was brought out through the anterior axillary introducer site after it had been cut to size. It was placed in the subhepatic space and secured with a 3-0 nylon at the skin level. The gas was allowed to escape. The introducers were removed. The fascia of the umbilical and upper midline introducer sites was closed with interrupted 0 Vicryl and skin of all the incisions were closed with 4-0 Monocryl in either an interrupted or running subcuticular fashion. The skin was anesthetized with 0.5% Marcaine. The skin was cleansed, dried, benzoin placed, Steri-Strips applied. Estimated blood loss was 20 mL. Sponge, needle and instrument counts were correct prior to closure. The patient tolerated the surgical procedure without complication and was transferred to recovery. I attest to the content of the Intraoperative Record and any orders documented therein. Any exceptio ns are noted below.
[2016-12-01] MEDS ORDERED: METFORMIN HCL 500 MG TABCR PO SCH (17:45)
[2016-12-01] MEDS: ONDANSETRON INJ 2 MG/ML 2 ML VIAL IV. SCH ×2 (18:09→23:40)
[2016-12-01] MEDS: RANITIDINE HCL 150 MG TAB PO SCH (20:53)
[2016-12-01] MEDS: PANTOprazole SOD 40 MG TAB PO SCH (20:53)
[2016-12-01] MEDS ORDERED: ATORVASTATIN 10 MG TAB PO SCH (21:00)
[2016-12-02 03:49] VITALS: BP 115/68; PULSE 94; TEMP 37.1; O2SAT 96
[2016-12-02] MEDS ORDERED: COUGH DROP (SUGAR FREE) LOZ 24 LOZ/1 BOX PO PRN (04:00)
[2016-12-02] MEDS: MoRPHine SULFATE 4 MG/ML 1 ML CARP\\VIAL IV PRN (05:04)
[2016-12-02] MEDS: ONDANSETRON INJ 2 MG/ML 2 ML VIAL IV. SCH ×2 (06:03→12:02)
[2016-12-02 07:32] VITALS: BP 101/63; PULSE 86; TEMP 37.3; O2SAT 94
[2016-12-02] MEDS ORDERED: IRBESARTAN 150 MG TAB PO SCH (09:00)
[2016-12-02] MEDS ORDERED: THEOPHYLLINE 400 MG EXTENDED REL TAB PO SCH (09:00)
[2016-12-02] MEDS ORDERED: VERAPAMIL HCL 180 MG TABCR PO SCH (09:00)
[2016-12-02] MEDS: RANITIDINE HCL 150 MG TAB PO SCH (09:28)
[2016-12-02] MEDS: PANTOprazole SOD 40 MG TAB PO SCH (09:29)
[2016-12-02] MEDS: OXYCODONE/ACETAMINOPHEN 5-325 TAB PO PRN ×2 (09:31→13:39)
--- NOTE | 2016-12-02 09:57 | Discharge Instructions ---
Discharge Instructions Date of Service Dec 02, 2016. Admission Reason for Admission: Right Upper Quadrant Pain Discharge Discharge Diagnosis / Problem: Cholecystitis, status post laparoscopic cholecystectomy Discharge Goals Goal(s): Decrease discomfort, Improve function Activity Recommendations Activity Limitations: as noted below No heavy lifting over 10 pounds for 2 weeks No strenuous activity until cleared by surgeon walking is encouraged to prevent blood clots You may shower in 24 hours, no submerging incisions underwater for 2 weeks Steri strips can be removed in 7 days, they may fall off before that is okay No driving while taking narcotic pain medication or until you are pain free . Instructions / Follow-Up Instructions / Follow-Up Follow-up with Dr. Bill/Ashley Redmond PA-C in 2 weeks Call office at [phone] to confirm appointment Current Hospital Diet Patient's current hospital diet: Diabetes Type 2 Diet Discharge Diet Recommended Diet: Regular Diet Procedures Procedures Performed: Laparoscopic Cholecystectomy Pending Studies Studies pending at discharge: no Laboratory Results Hemoglobin A1c Test 10/25/16 09:42 Range/Units Estimated Average Glucose 131 mg/dl Hemoglobin A1c 6.2 H 4.5-5.6 % Lipid Panel Test 10/25/16 09:42 Range/Units Triglycerides Level 82 0-150 mg/dl Cholesterol Level 100 0-200 mg/dl HDL Cholesterol 37 mg/dl Cholesterol/HDL Ratio 2.7 LDL Cholesterol, Calculated 47 mg/dl Medical Emergencies . Who to Call and When: Medical Emergencies: If at any time you feel your situation is an emergency, please call 911 immediately. . Non-Emergent Contact Non-Emergency issues call your: Primary Care Provider, Surgeon Call Non-Emergent contact if: you have a fever, temperature is above 101.5, your pain is not controlled, your pain is worsening, wound has increased drainage, wound has increased redness, wound has increased pain . "Provider Documentation" section prepared by Ashley Redmond. VTE Core Measure Inpt VTE Proph given/why not?: SCD's [place] Drug Monitoring Program Search Results: patient reviewed within database
[2016-12-02] MEDS ORDERED: OXYC-57 PO (09:58)
[2016-12-02] MEDS ORDERED: DOCUSATE SODIUM 100 MG CAP PO ONE (10:00)
--- NOTE | 2016-12-02 10:40 | Anesthesiology Progress Note ---
Anesthesia Post Op Note Date & Time Dec 02, 2016 at 10:39 Vital Signs Vital Signs Past 12 Hours Date Time Temp Pulse Resp B/P Pulse Ox O2 Delivery O2 Flow Rate FiO2 12/02/16 08:19 Room Air 12/02/16 07:32 37.3 86 20 101/63 94 Room Air 12/02/16 03:49 37.1 94 16 115/68 96 Nasal Cannula 2.0 12/01/16 23:40 Nasal Cannula 2.0 12/01/16 23:17 36.9 95 16 115/72 97 Nasal Cannula 2.0 Notes Mental Status: alert / awake / arousable, participated in evaluation Pt Amnestic to Procedure: Yes Nausea / Vomiting: adequately controlled Pain: adequately controlled Airway Patency, RR, SpO2: stable & adequate BP & HR: stable & adequate Hydration State: stable & adequate Anesthetic Complications: no major complications apparent
--- NOTE | 2016-12-02 10:41 | Surgery Progress Note ---
Surgery Progress Note Date of Service Dec 02, 2016. Subjective Post OP Day: 1 Feeling okay Pain moderate 3-7 /10 controlled with IV pain medications so far no nausea or vomiting tolerating diet ambulated to bathroom urinating without difficulty Objective Vital Signs: Date Time Temp Pulse Resp B/P Pulse Ox O2 Delivery O2 Flow Rate FiO2 12/02/16 08:19 Room Air 12/02/16 07:32 37.3 86 20 101/63 94 Room Air 12/02/16 03:49 37.1 94 16 115/68 96 Nasal Cannula 2.0 12/01/16 23:40 Nasal Cannula 2.0 12/01/16 23:17 36.9 95 16 115/72 97 Nasal Cannula 2.0 12/01/16 18:57 36.8 96 16 108/70 93 12/01/16 17:52 36.8 91 16 112/68 93 Room Air 12/01/16 16:54 37.0 88 18 113/67 98 12/01/16 16:25 89 18 111/68 98 Nasal Cannula 2.0 12/01/16 16:25 Nasal Cannula 2.0 12/01/16 16:20 Nasal Cannula 2.0 12/01/16 15:45 37.0 86 18 121/69 98 Nasal Cannula 2.0 12/01/16 15:30 88 14 131/66 98 Nasal Cannula 2 12/01/16 15:15 86 13 127/68 98 Nasal Cannula 2 12/01/16 15:00 83 17 132/62 100 Nasal Cannula 2 12/01/16 14:50 83 16 120/55 99 Nasal Cannula 2 12/01/16 14:40 37.0 88 13 127/61 99 Nasal Cannula 2 12/01/16 14:30 86 14 130/62 100 Nasal Cannula 2 12/01/16 14:20 86 16 127/74 100 Mask 10 12/01/16 14:10 84 16 100/56 100 Mask 10 12/01/16 14:03 36.8 83 16 146/74 100 Mask 10 General Appearance: WD/WN, no apparent distress Head: normocephalic, atraumatic Neck: trachea midline Abdomen: non distended, soft, + tenderness (appropriate post op) Incision(s): clean, dry, intact Laboratory Results: Results Past 24 Hours Test 12/01/16 14:14 12/01/16 16:53 12/01/16 16:54 12/01/16 20:39 Range/Units Bedside Glucose 174 182 180 70-90 mg/dl Hepatitis C Antibody Screen NEG NEG Test 12/02/16 08:10 Range/Units Bedside Glucose 149 70-90 mg/dl Assessment & Plan POD # 1 s/p laparoscopic cholecystectomy - Vital signs stable - abdomen soft, pain appropriate post op - tolerating diet - adequate urine output Plan: Patient doing well post op Will consult social service for discharge planning as patient lives home alone, might need outpatient PT Stool softener Oral pain medications instead of IV Discharge instructions and Rx in chart Continue Diabetic diet Discharge today after social service evaluation Dr. Bill has seen patient and agrees with above stated findings and treatment plan.
[2016-12-02] MEDS ORDERED: SODIUM CHLORIDE 0.65% NA SOLN 45 ML (OCEAN) ONE (10:53)
[2016-12-02] MEDS ORDERED: DOCUSATE SODIUM 100 MG CAP ONE (12:11)
[2016-12-02 12:17] VITALS: BP 101/63; PULSE 86; TEMP 37.3; O2SAT 94
[2016-12-02 12:34] VITALS: BP 94/60; PULSE 93; TEMP 37; O2SAT 91
--- NOTE | 2016-12-10 09:48 | Discharge Summary ---
Discharge Summary Dates Admission Date / Time: Dec 01, 2016 at 14:38 Discharge Date: Dec 02, 2016 Dispostion / Condition Discharge Disposition: Home with services Condition at Discharge: Good Principal Diagnosis (1) Calculous cholecystitis (2) RUQ abdominal pain Consultations / Procedures Consultations: Market Researcher Procedures: Laparoscopic Cholecystectomy Pending Studies / Follow-Up None Medication Reconciliation New Medications: Oxycodone/Acetaminophen 5MG/325MG (Percocet 5MG/325MG) Tab 1 TABLET PO Q4H PRN for Pain, #18 TAB Continued Medications: Acetaminophen (Acetaminophen) 500 Mg Tab 1000 MG PO PRN for 15 Days, TAB Ascorbic Acid (Vitamin C) 500 Mg Cap 500 MG PO QAM Aspirin (Aspirin Ec) 81 Mg Tab 81 MG PO QAM Atorvastatin (Lipitor) 10 Mg Tab 10 MG PO HS, TAB Calcium Carbonate-Cholecalcife (Caltrate 600+D) 1 Tab Tab 1 TAB PO BID Cetirizine (Zyrtec) 10 Mg Tab 10 MG PO QAM, TAB Diclofenac Sodium (Voltaren) 75 Mg Tab 75 MG PO BID, TAB WITH FOOD Etanercept (Enbrel Sureclick) 50 Mg/Ml Inj 50 MG SC 2XWK Ferrous Fumarate (Iron) 18 Mg Tab 18 MG PO QAM Fluticasone Propionate (Flovent Hfa) 120 Puffs/5280 Mcg Aero 1 PUFFS INH BID PRN for PRN for 30 Days, #10.6 GM 2 Refills Fluticasone Propionate (Nasal) (Flonase Allergy Relief) 50 Mcg/Act Spr 2 SPRAY AD BID PRN for PRN Folic Acid (Folic Acid) 400 Mcg Tab 400 MCG PO QAM Guaifenesin/Codeine (Robitussin-Ac Syrup) Syrp 5 ML PO Q6H PRN for N for 6 Days, #120 ML Irbesartan (Avapro) 150 Mg Tab 150 MG PO QAM, TAB Metformin Hcl Er (Glucophage Er) 500 Mg Tab 500 MG PO BID, TAB Multiple Vitamins W/ Minerals (Centrum Silver) 1 Chw Chw 1 TAB PO QAM Omeprazole (Prilosec) 20 Mg Capcr 20 MG PO BID, CAP Ranitidine (Zantac) 150 Mg Tab 150 MG PO BID, TAB Salmeterol Xinafoate (Serevent Diskus) 50 Mcg Aerp 1 PUFF INH BID PRN for WHEEZING Theophylline (Theophylline Cr) 200 Mg Tab 200 MG PO QAM Triamcinolone Acet (Triamcinolone Acetonide) 45 Appln/15 Gm Oint 1 APPLN TOP BID for 7 Days, #1 TUBE Verapamil (Calan) 80 Mg Tab 180 MG PO QAM, TAB [Onglyza] () 5 MG PO QAM Admission HPI Per the Admitting provider: Patient was scheduled for elective outpatient laparoscopic cholecystectomy given RUQ abdominal pain, nausea, bloating, belching, and possible gallstones. She underwent both upper and lower endoscopy prior to her surgery given history of unintentional weight loss of 20 pounds. Scopes did not show anything concerning. During procedure she was found to have extensive adhesions to the gallbladder and severe inflammation which required delicate removal of adhesions and prolonged operative procedure. She also had a drain placed originally given inflammation and some bleeding however drain somehow was pulled from the patient when she got to PACU. It was decided patient would stay the evening for evaluation given longer and difficult procedure. Hospital Course (1) Calculous cholecystitis Patient tolerated laparoscopic cholecystectomy well and was transferred to PACU and then medical/surg floor for post op care. Her diet was advanced as tolerated, given IV and oral pain medication as needed, IV fluids were continued , and IV zofran. Home meds were also continued. POD # 1 patient tolerated breakfast well and pain was controlled with IV pain medication. She did not try the oral pain medication as of the morning of POD # 1. Urinated and ambulated well to the restroom. She lives at home alone and though she may need some help a few days when she would be discharged therefor nephrology social worker/ discharge planning was consulted. She did well post op and was discharged home on POD # 1 with some home health care set up. Overall hospital course was uneventful. Total Time Total Time Spent (min): 30 Total Time Includes: examination of the patient, discharge planning, medication reconciliation Discharge Instructions as given to patient Copies To Primary Care Provider: Israel Ruiz M.D.. Problem Qualifiers (1) Calculous cholecystitis: Cholecystitis acuity: acute and chronic Biliary obstruction: without biliary obstruction Qualified Codes: K80.12 - Calculus of gallbladder with acute and chronic cholecystitis without obstruction
[2017-01-10] MEDS ORDERED: VERA180T PO (10:46)
== END 2016-12-02 14:06 | disposition home health service (06) ==
LOC: ENRESERVTM → ENRESERVDT → C.ACU 09:44 → UNDOADMOB 10:10 → C.MSN 10:10 → UNDOADMOB 14:38
PROVIDERS: ADMIT Surgery; ATTEND Surgery
DX: K81.2 Acute cholecystitis with chronic cholecystitis (principal); J45.909 Unspecified asthma, uncomplicated; E11.9 Type 2 diabetes mellitus without complications; E78.5 Hyperlipidemia, unspecified; I10 Essential (primary) hypertension; M35.3 Polymyalgia rheumatica

== ENCOUNTER → 2017-01-19 | Day surgery (SDC) | payer OTHER ==
[2017-01-10 10:51] VITALS: Ht 160 cm; Wt 54.5 kg
[~2017-01-19] VITALS: Ht 160 cm; Wt 54.5 kg
[~2017-01-19] MED LIST changes: -CEFAZOLIN 2000 MG/60 ML D5W IV SCH; -LACTATED RINGER'S 1000ML 1,000 ML IV SCH; +LIDOCAINE HCL 2% 2 ML VIAL (20MG/ML) ONE; +PHENYLEPHRINE 100MCG/ML 5ML SYR ONE; -PRLSR20 PO; +PROPOFOL IV EMULSION 10 MG/ML 20 ML VIAL IV ONE; +SODIUM CHLORIDE 0.9% 500ML 500 ML IV ONE; +VERA180T PO; -VERA1TAB PO
--- NOTE | 2017-01-19 13:34 | Endo History and Physical ---
History & Physical Date of Service: January 19, 2017. Chief Complaint: Obstruction of duodenum "with dilation" Referring Physician: Israel Ruiz History of Present Illness duodenal stricture Past Surgical History Hx Cardiac Surgery: No Hx Internal Defibrillator: No Hx Pacemaker: No Hx Abdominal Surgery: Yes (LAP ALEXEI, APPY) Hx of Implantable Prosthesis: No Hx Post-Op Nausea and Vomiting: No Hx Cancer Surgery: Yes (MOHS ON RT CHEEK) Hx Thoracic Surgery: No Hx Orthopedic: No Hx Urinary Tract Surgery: No Social History Smoking Status: Never Smoker Hx Substance Use: No Hx Alcohol Use: Yes (OCCASIONALLY) Allergies Coded Allergies: [place] Tar Extract (Verified Allergy, Intermediate, HIVES, 01/19/17) Adhesives (Verified Allergy, Unknown, TAPE-SKIN IRRITATION-PAPER TAPE [place], 01/19/17) Pravastatin (Verified Adverse Reaction, Intermediate, LEG PAIN, 01/19/17) Current Medications Reported Home Medications Medications Dose Route/Sig Max Daily Dose Days Date Category Dose Instructions Calan Sr Ext Rel (Verapamil Hcl) 180 Mg Tab 180 Mg PO QAM 01/10/17 Reported Robitussin-Ac Syrup (Codeine Phosphate/Guaifenesin) Syrp 5 Ml PO Q6H PRN 6 11/25/16 Reported Iron (Ferrous Fumarate) 18 Mg Tab 18 Mg PO QAM 11/25/16 Reported Vitamin C (Ascorbic Acid) 500 Mg Cap 500 Mg PO QAM 11/25/16 Reported Triamcinolone Acetonide (Triamcinolone Acet) 45 Appln/15 Gm Oint 1 Appln TOP BID 7 11/25/16 Reported Flovent Hfa (Fluticasone Propionate) 120 Puffs/5280 Mcg Aero 1 Puffs INH BID PRN 30 11/25/16 Reported Aspirin Ec (Aspirin) 81 Mg Tab 81 Mg PO QAM 11/01/16 Reported Folic Acid 400 Mcg Tab 400 Mcg PO QAM 11/01/16 Reported Acetaminophen 500 Mg Tab 1,000 Mg PO PRN 15 11/01/16 Reported Caltrate 600+D (Calcium Carbonate-Cholecalcife) 1 Tab Tab 1 Tab PO BID 11/01/16 Reported Centrum Silver (Multiple Vitamins W/ Minerals) 1 Chw Chw 1 Tab PO QAM 11/01/16 Reported Zantac (Ranitidine HCl) 150 Mg Tab 150 Mg PO BID 11/01/16 Reported [Onglyza] 5 Mg PO QAM 11/01/16 Reported Enbrel Sureclick (Etanercept) 50 Mg/Ml Inj 50 Mg SC 2XWK 11/01/16 Reported Glucophage Er (Metformin HCl) 500 Mg Tab 500 Mg PO BID 11/01/16 Reported Flonase Allergy Relief (Fluticasone Propionate (Nasal)) 50 Mcg/Act Spr 2 [place] AD BID PRN 11/01/16 Reported Serevent Diskus (Salmeterol Xinafoate) 50 Mcg Aerp 1 Puff INH BID PRN 11/01/16 Reported Zyrtec (Cetirizine HCl) 10 Mg Tab 10 Mg PO QAM 11/01/16 Reported Avapro (Irbesartan) 150 Mg Tab 150 Mg PO QAM 11/01/16 Reported Voltaren (Diclofenac Sodium) 75 Mg Tab 75 Mg PO QAM 11/01/16 Reported WITH FOOD Theophylline Cr (Theophylline) 200 Mg Tab 200 Mg PO QAM 11/01/16 Reported Lipitor (Atorvastatin Calcium) 10 Mg Tab 10 Mg PO HS 11/01/16 Reported Vital Signs Weight (Kilograms): 54.55 Height (Feet): 5 Height (Inches): 3 Date Time Temp Pulse Resp B/P Pulse Ox O2 Delivery O2 Flow Rate FiO2 01/19/17 12:55 36.8 90 18 97/60 93 Room Air Physical Exam AAOX3 nl s1s2 lungs CTA Abd soft NT/ND + BS - CCE Assessment and Plan EGD with dilation
--- NOTE | 2017-01-19 14:06 | Discharge Instructions ---
Endoscopy Patient Instructions Date / Procedure(s) Performed January 19, 2017. EGD Allergy Information Coded Allergies: [place] Tar Extract (Verified Allergy, Intermediate, HIVES, 01/19/17) Adhesives (Verified Allergy, Unknown, TAPE-SKIN IRRITATION-PAPER TAPE [place], 01/19/17) Pravastatin (Verified Adverse Reaction, Intermediate, LEG PAIN, 01/19/17) Discharge Date / Findings January 19, 2017. duodenal ulcers duodenal stenosis- dilated to 12 mm- traversed Medication Instructions Stopped Medication(s): Aspirin stopped 01/18/17 Metformin stopped 01/17/17 Restart Stopped Medication(s): Reported Home Medications Medications Dose Route/Sig Max Daily Dose Days Date Category Dose Instructions Calan Sr Ext Rel (Verapamil Hcl) 180 Mg Tab 180 Mg PO QAM 01/10/17 Reported Robitussin-Ac Syrup (Codeine Phosphate/Guaifenesin) Syrp 5 Ml PO Q6H PRN 6 11/25/16 Reported Iron (Ferrous Fumarate) 18 Mg Tab 18 Mg PO QAM 11/25/16 Reported Vitamin C (Ascorbic Acid) 500 Mg Cap 500 Mg PO QAM 11/25/16 Reported Triamcinolone Acetonide (Triamcinolone Acet) 45 Appln/15 Gm Oint 1 Appln TOP BID 7 11/25/16 Reported Flovent Hfa (Fluticasone Propionate) 120 Puffs/5280 Mcg Aero 1 Puffs INH BID PRN 30 11/25/16 Reported Aspirin Ec (Aspirin) 81 Mg Tab 81 Mg PO QAM 11/01/16 Reported Folic Acid 400 Mcg Tab 400 Mcg PO QAM 11/01/16 Reported Acetaminophen 500 Mg Tab 1,000 Mg PO PRN 15 11/01/16 Reported Caltrate 600+D (Calcium Carbonate-Cholecalcife) 1 Tab Tab 1 Tab PO BID 11/01/16 Reported Centrum Silver (Multiple Vitamins W/ Minerals) 1 Chw Chw 1 Tab PO QAM 11/01/16 Reported Zantac (Ranitidine HCl) 150 Mg Tab 150 Mg PO BID 11/01/16 Reported [Onglyza] 5 Mg PO QAM 11/01/16 Reported Enbrel Sureclick (Etanercept) 50 Mg/Ml Inj 50 Mg SC 2XWK 11/01/16 Reported Glucophage Er (Metformin HCl) 500 Mg Tab 500 Mg PO BID 11/01/16 Reported Flonase Allergy Relief (Fluticasone Propionate (Nasal)) 50 Mcg/Act Spr 2 [place] AD BID PRN 11/01/16 Reported Serevent Diskus (Salmeterol Xinafoate) 50 Mcg Aerp 1 Puff INH BID PRN 11/01/16 Reported Zyrtec (Cetirizine HCl) 10 Mg Tab 10 Mg PO QAM 11/01/16 Reported Avapro (Irbesartan) 150 Mg Tab 150 Mg PO QAM 11/01/16 Reported Voltaren (Diclofenac Sodium) 75 Mg Tab 75 Mg PO QAM 11/01/16 Reported WITH FOOD Theophylline Cr (Theophylline) 200 Mg Tab 200 Mg PO QAM 11/01/16 Reported Lipitor (Atorvastatin Calcium) 10 Mg Tab 10 Mg PO HS 11/01/16 Reported Reported Home Medications Medications Dose Route/Sig Max Daily Dose Days Date Category Dose Instructions Calan Sr Ext Rel (Verapamil Hcl) 180 Mg Tab 180 Mg PO QAM 01/10/17 Reported Robitussin-Ac Syrup (Codeine Phosphate/Guaifenesin) Syrp 5 Ml PO Q6H PRN 6 11/25/16 Reported Iron (Ferrous Fumarate) 18 Mg Tab 18 Mg PO QAM 11/25/16 Reported Vitamin C (Ascorbic Acid) 500 Mg Cap 500 Mg PO QAM 11/25/16 Reported Triamcinolone Acetonide (Triamcinolone Acet) 45 Appln/15 Gm Oint 1 Appln TOP BID 7 11/25/16 Reported Flovent Hfa (Fluticasone Propionate) 120 Puffs/5280 Mcg Aero 1 Puffs INH BID PRN 30 11/25/16 Reported Aspirin Ec (Aspirin) 81 Mg Tab 81 Mg PO QAM 11/01/16 Reported Folic Acid 400 Mcg Tab 400 Mcg PO QAM 11/01/16 Reported Acetaminophen 500 Mg Tab 1,000 Mg PO PRN 15 11/01/16 Reported Caltrate 600+D (Calcium Carbonate-Cholecalcife) 1 Tab Tab 1 Tab PO BID 11/01/16 Reported Centrum Silver (Multiple Vitamins W/ Minerals) 1 Chw Chw 1 Tab PO QAM 11/01/16 Reported Zantac (Ranitidine HCl) 150 Mg Tab 150 Mg PO BID 11/01/16 Reported [Onglyza] 5 Mg PO QAM 11/01/16 Reported Enbrel Sureclick (Etanercept) 50 Mg/Ml Inj 50 Mg SC 2XWK 11/01/16 Reported Glucophage Er (Metformin HCl) 500 Mg Tab 500 Mg PO BID 11/01/16 Reported Flonase Allergy Relief (Fluticasone Propionate (Nasal)) 50 Mcg/Act Spr 2 [place] AD BID PRN 11/01/16 Reported Serevent Diskus (Salmeterol Xinafoate) 50 Mcg Aerp 1 Puff INH BID PRN 11/01/16 Reported Zyrtec (Cetirizine HCl) 10 Mg Tab 10 Mg PO QAM 11/01/16 Reported Avapro (Irbesartan) 150 Mg Tab 150 Mg PO QAM 11/01/16 Reported Voltaren (Diclofenac Sodium) 75 Mg Tab 75 Mg PO QAM 11/01/16 Reported WITH FOOD Theophylline Cr (Theophylline) 200 Mg Tab 200 Mg PO QAM 11/01/16 Reported Lipitor (Atorvastatin Calcium) 10 Mg Tab 10 Mg PO HS 11/01/16 Reported Consider stopping Voltaren ( NSAID) Provider Instructions Activity Restrictions - No exercising or heavy lifting for 24 hours. - Do not drink alcohol the day of the procedure. - Do not drive a car or operate machinery until the day after the procedure. - Do not make any important decisions or sign important papers in 24 hours after the procedure. Following Day: - Return to full activity which may include returning to work/school. Diet Start your diet with liquids and light foods (jello, soup, juice, toast). Then eat your usual diet if not nauseated. Treatment For Common After Affects For mild abdominal pain, bloating, or excessive gas: - Rest - Eat lightly - Lie on right side Follow-Up Information Follow-up with Israel Ruiz as scheduled Anesthesia Information What You Should Know You have had a procedure that required some medicine to reduce anxiety and discomfort. This treatment is called moderate sedation. After receiving the treatment, you may be sleepy, but you will be able to breathe on your own. The effects of the treatment may last for several hours. Follow these instructions along with Activity/Diet recommendations noted above: * Do NOT do anything where dizziness or clumsiness would be dangerous. * Rest quietly at home today, then you can be up and about tomorrow. * Have a responsible person stay with you the rest of today. * You may have had an I.V. today. If so, you may take the dressing off later today. Recommendations Call your doctor if: * Trouble breathing * Continuous vomiting for more than 24 hours * Temperature above 101 degrees * Severe abdominal pain or bloating * Pain not relieved by pain medicine ordered * There is increased drainage or redness from any incision * A large amount of rectal bleeding greater than 2-3 tablespoons. (If you had a polyp/s removed or have hemorrhoids, a small amount of blood - from the rectum is to be expected.) * You have any unanswered questions or concerns. IN THE EVENT OF A SERIOUS EMERGENCY, GO TO THE NEAREST EMERGENCY ROOM Your discharge instructions were prepared by provider Cameron Parks. Patient Instructions Signature Page Marcia Wilburn Patient (or Guardian) Signature/Date: I have read and understand the instructions given to me by my caregivers. Caregiver/RN/Doctor Signature/Date: The above-named patient and/or guardian has received patient instructions on this date. + Original Patient Signature Page (only) stays with chart. Please make copy for patient.
--- NOTE | 2017-01-19 14:31 | GI REPORT ---
Procedure Date: 01/19/2017 1:27 PM Procedure: Upper GI endoscopy Indications: Epigastric abdominal pain, Acute duodenal ulcer, Nausea Medicines: Propofol per Anesthesia Complications: No immediate complications. Estimated blood loss: Minimal. Estimated Blood Loss: Estimated blood loss was minimal. Procedure: Pre-Anesthesia Assessment: - Prior to the procedure, a History and Physical was performed, and patient medications and allergies were reviewed. The patient's tolerance of previous anesthesia was also reviewed. The risks and benefits of the procedure and the sedation options and risks were discussed with the patient. All questions were answered, and informed consent was obtained. Prior Anticoagulants: The patient has taken no previous anticoagulant or antiplatelet agents. ASA Grade Assessment: III - A patient with severe systemic disease. After reviewing the risks and benefits, the patient was deemed in satisfactory condition to undergo the procedure. After obtaining informed consent, the endoscope was passed under direct vision. Throughout the procedure, the patient's blood pressure, pulse, and oxygen saturations were monitored continuously. The Scope was introduced through the mouth, and advanced to the fourth part of duodenum. The upper GI endoscopy was accomplished without difficulty. The patient tolerated the procedure well. Findings: The examined esophagus was normal. The entire examined stomach was normal. One non-bleeding superficial duodenal ulcer with no stigmata of bleeding was found in the duodenal bulb. The lesion was 5 mm in largest dimension. Biopsies were taken with a cold forceps for histology. Estimated blood loss was minimal. Verification of patient identification for the specimen was done by the physician and certified medical technician assistant using the patient's name and medical record number. An acquired benign-appearing, intrinsic severe stenosis was found in the first part of the duodenum and was traversed after dilation. A TTS dilator was passed through the scope. Dilation with an 8-9-10 mm and a 10-11-12 mm pyloric balloon dilator was performed. The dilation site was examined and showed moderate improvement in luminal narrowing. One non-bleeding cratered duodenal ulcer with no stigmata of bleeding was found in the first part of the duodenum. The lesion was 10 mm in largest dimension. Biopsies were taken with a cold forceps for histology. Estimated blood loss was minimal. Verification of patient identification for the specimen was done by the physician and certified medical technician assistant using the patient's name and medical record number. Retained gastric contents are not identified on this exam. Impression: - Normal esophagus. - Normal stomach. - One non-bleeding duodenal ulcer with no stigmata of bleeding. Biopsied. - Acquired duodenal stenosis. Dilated. - One non-bleeding duodenal ulcer with no stigmata of bleeding. Biopsied. Recommendation: - Discharge patient to home (ambulatory). - Patient has a contact number available for emergencies. The signs and symptoms of potential delayed complications were discussed with the patient. Return to normal activities tomorrow. Written discharge instructions were provided to the patient. - Await pathology results. - No aspirin, ibuprofen, naproxen, or other non-steroidal anti-inflammatory drugs. - Repeat the upper endoscopy PRN for retreatment. MD Cameron Tobar MD 01/19/2017 2:30:38 PM This report has been signed electronically. Note Initiated On: 01/19/2017 1:27 PM I attest to the content of the Intraoperative Record and orders documented therein, exceptions below
[2017-01-19 14:56] VITALS: BP 111/69; PULSE 89; O2SAT 100
--- NOTE | 2017-01-19 14:58 | Anesthesiology Progress Note ---
Anesthesia Post Op Note Date & Time January 19, 2017 at 14:59 Vital Signs Pain Intensity: 0 Vital Signs Past 12 Hours Date Time Temp Pulse Resp B/P Pulse Ox O2 Delivery O2 Flow Rate FiO2 01/19/17 14:44 89 18 105/63 100 Room Air 01/19/17 14:29 84 18 89/65 100 Room Air 01/19/17 14:11 94 18 91/48 99 Room Air 01/19/17 12:55 36.8 90 18 97/60 93 Room Air Notes Mental Status: alert / awake / arousable, participated in evaluation Pt Amnestic to Procedure: Yes Nausea / Vomiting: adequately controlled Pain: adequately controlled Airway Patency, RR, SpO2: stable & adequate BP & HR: stable & adequate Hydration State: stable & adequate Anesthetic Complications: no major complications apparent
== END | disposition home or self-care (01) ==
LOC: C.GI 12:18
PROVIDERS: ATTEND Internal Medicine Gastroenterology
DX: K26.3 Acute duodenal ulcer without hemorrhage or perforation (principal); K31.5 Obstruction of duodenum; Z79.82 Long term (current) use of aspirin; Z79.899 Other long term (current) drug therapy; K29.80 Duodenitis without bleeding

== ENCOUNTER → 2017-05-06 | Outpatient (CLI) | payer OTHER ==
[~2017-05-06] MED LIST changes: -ATOR10TA82 PO; +ATOR10TA88 PO; -LIDOCAINE HCL 2% 2 ML VIAL (20MG/ML) ONE; -PHENYLEPHRINE 100MCG/ML 5ML SYR ONE; -PROPOFOL IV EMULSION 10 MG/ML 20 ML VIAL IV ONE; -SODIUM CHLORIDE 0.9% 500ML 500 ML IV ONE
[2017-05-06 12:56] LABS: ESTIMATED AVERAGE GLUCOSE 137 mg/dl; HA1C FLAG Normal (Normal)
[2017-05-06 13:22] LABS: BLOOD UREA NITROGEN 15 mg/dl (7-18); BUN/CREATININE RATIO 25.2 (10-20); CALCIUM 10.2 mg/dl (8.5-10.1); CARBON DIOXIDE 31 mmol/L (21-32); CHLORIDE 104 mmol/L (98-107); CREATININE 0.58 mg/dl (0.60-1.20); GLUCOSE 101 mg/dl (70-99); POTASSIUM 4.4 mmol/L (3.5-5.1); SODIUM 139 mmol/L (136-145)
== END | disposition home or self-care (01) ==
LOC: C.LABBFT 09:36
PROVIDERS: ATTEND Family Medicine
DX: E11.9 Type 2 diabetes mellitus without complications (principal)

== ENCOUNTER → 2017-08-02 | Outpatient (CLI) | payer OTHER ==
[~2017-08-02] MED LIST changes: -ACET500T57 PO; +ACET500T58 PO; +ATOR10TA82 PO; -ATOR10TA88 PO
--- NOTE | 2017-08-03 15:59 | MAMMOGRAPHY REPORT ---
BILATERAL DIGITAL SCREENING MAMMOGRAM WITH CAD: 08/02/2017 CLINICAL HISTORY: Routine screening. Patient has no complaints. TECHNIQUE: Bilateral CC and MLO views were obtained. Current study was also evaluated with a Compute r Aided Detection (CAD) system. COMPARISON: Comparison is made to exams dated: 08/27/2014 mammogram, 02/16/2011 mammogram - [facility], 04/10/2008 mammogram, and 05/26/2005 mammogram. BREAST COMPOSITION: There are scattered areas of fibroglandular density in both breasts. FINDINGS: There are scattered benign rim calcifications in the breasts. 2 linear scar markers overli e the right breast. A 4 cm focal asymmetry in the upper outer quadrant of the right breast is stable in size and appearance dating back to at least 02/16/2011, therefore likely benign. No new suspicio us mass, architectural distortion or cluster of microcalcifications is seen. IMPRESSION: ACR BI-RADS CATEGORY 1: NEGATIVE There is no mammographic evidence of malignancy. A 1 year screening mammogram is recommended. The pa tient will receive written notification of the results. Approximately 10% of breast cancers are not detected with mammography. A negative mammographic report should not delay biopsy if a clinically suggestive mass is present. Oneyda Glez M.D. ay/:08/03/2017 07:51:21 Behavior Specialist: aNz Fernandez, [facility] letter sent: Normal 1/2 BI-RADS Code: ACR BI-RADS Category 1: Negative
== END | disposition home or self-care (01) ==
LOC: C.MAMM 08:42
PROVIDERS: ATTEND Family Medicine
DX: Z12.31 Encounter for screening mammogram for malignant neoplasm of breast (principal)

== ENCOUNTER → 2017-09-19 | Outpatient (CLI) | payer OTHER | END | disposition home or self-care (01) | LOC: C.MAMM 15:42 | PROVIDERS: ATTEND Family Medicine | DX: M85.88 Other specified disorders of bone density and structure, other site (principal); M85.852 Other specified disorders of bone density and structure, left thigh; M85.851 Other specified disorders of bone density and structure, right thigh ==

== ENCOUNTER → 2017-10-31 | Outpatient (CLI) | payer OTHER ==
[~2017-10-31] MED LIST changes: +RANI150T85 PO; -ZNTT/150 PO
[2017-10-31 12:28] LABS: HEMATOCRIT 39.2 % (37-47); HEMOGLOBIN 12.4 g/dL (12.0-16.0); MEAN CELL VOLUME 84.1 fL (80-100); MEAN CORPUSCULAR HEMOGLOBIN 26.6 pg (25-34); MEAN CORPUSCULAR HGB CONC 31.6 g/dl (32-36); MEAN PLATELET VOLUME 10.5 fL (7.4-10.4); PLATELET COUNT 334 K/uL (130-400); RED CELL DISTRIBUTION WIDTH CV 15.8 % (11.5-14.5); RED CELL DISTRIBUTION WIDTH SD 48.4 fL (36.4-46.3); WHITE BLOOD COUNT 8.92 K/uL (4.8-10.8)
[2017-10-31 13:08] LABS: HEMOGLOBIN A1C 6.7 % (4.5-5.6)
[2017-10-31 15:55] LABS: ALBUMIN 3.6 gm/dl (3.4-5.0); ALT/SGPT 52 U/L (12-78); BLOOD UREA NITROGEN 21 mg/dl (7-18); CALCIUM 9.6 mg/dl (8.5-10.1); CARBON DIOXIDE 27 mmol/L (21-32); CHOLESTEROL 112 mg/dl (0-200); CREATININE 0.84 mg/dl (0.60-1.20); GLUCOSE 156 mg/dl (70-99); POTASSIUM 4.4 mmol/L (3.5-5.1); SODIUM 136 mmol/L (136-145)
[2017-10-31 16:05] LABS: ALKALINE PHOSPHATASE 131 U/L (45-117); AST/SGOT 27 U/L (15-37); LDL CHOLESTEROL CALCULATED 50 mg/dl; PHOSPHORUS 2.5 mg/dl (2.5-4.9); TOTAL PROTEIN 7.1 gm/dl (6.4-8.2)
== END | disposition home or self-care (01) ==
LOC: C.LABBFT 09:05
PROVIDERS: ATTEND Internal Medicine
DX: M35.3 Polymyalgia rheumatica (principal); Z79.899 Other long term (current) drug therapy

== ENCOUNTER → 2017-11-02 | Outpatient (CLI) | payer OTHER | END | disposition home or self-care (01) | LOC: C.LABBFT 18:12 | PROVIDERS: ATTEND Family Medicine | DX: E11.9 Type 2 diabetes mellitus without complications (principal); I10 Essential (primary) hypertension; E78.2 Mixed hyperlipidemia ==

== ENCOUNTER → 2017-11-11 | Outpatient (CLI) | payer OTHER ==
--- NOTE | 2017-11-11 13:16 | DIAGNOSTIC IMAGING REPORT ---
THORACIC SPINE 3 VIEWS HISTORY: DORSALGIA, CERVICALGIA COMPARISON: None. FINDINGS: There is no fracture. No subluxation. Mild disc space narrowing and small endplate osteophytes seen throughout the thoracic spine. Minimal anterior wedging within the T11 vertebral body remains unchanged. IMPRESSION: No acute fracture or subluxation within the thoracic spine. 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 Electronically signed by: Carlos Barnes M.D. 11/11/2017 1:15 PM Dictated Date/Time: 11/11/2017 1:12 PM
--- NOTE | 2017-11-11 13:17 | DIAGNOSTIC IMAGING REPORT ---
CERVICAL SPINE 5 VIEWS HISTORY: DORSALGIA, CERVICALGIA COMPARISON: None. FINDINGS: The cervical spine is visualized from C1 through the superior endplate of T1. There is no fracture. No subluxation. Disc spaces are preserved. Prevertebral soft tissues and the atlantodens interval are intact. Mild facet degenerative changes throughout the cervical spine. No significant neural foraminal narrowing. IMPRESSION: No fracture or subluxation within the cervical spine. 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 Electronically signed by: Carlos Barnes M.D. 11/11/2017 1:16 PM Dictated Date/Time: 11/11/2017 1:15 PM
== END | disposition home or self-care (01) ==
LOC: C.RAD1850 12:47
PROVIDERS: ATTEND Family Medicine
DX: M54.2 Cervicalgia (principal)